=== PATIENT | male | born 2000 | race African-American/Black ===

== ENCOUNTER 2019-01-30 17:06 | Emergency (ER) | payer OTHER ==
[~2019-01-30] VITALS: Ht 177.8 cm; Wt 69.3 kg
[2019-01-30] MEDS ORDERED: LORazepam 2 MG/ML VIAL (J2060) IV STA (17:27)
[2019-01-30] MEDS ORDERED: MORPHINE 4 MG/ML 1ML VIAL/SYRINGE (J2270) IV ONE (17:30)
[2019-01-30] MEDS ORDERED: ONDANSETRON 4MG/2ML VIAL (J2405) IV ONE (17:30)
--- NOTE | 2019-01-30 18:52 | REP ---
Right shoulder two views: There is anterior inferior dislocation of the humeral head. Electronically Signed by Javier Suárez MD 01/30/2019 06:44 P
[2019-01-30 19:00] VITALS: BP 161/79
--- NOTE | 2019-01-30 19:20 | REP ---
Portable right shoulder, single AP view, post reduction: The study is correlated with the right shoulder study earlier this same evening. The humeral head is normally aligned with the glenoid. The dislocation has been satisfactorily reduced. No fracture is identified. Electronically Signed by Javier Suárez MD 01/30/2019 07:12 P
[2019-01-30] MEDS ORDERED: PERCOCET 5MG/325MG TAB PO ONE (19:30)
[2019-01-30] MEDS ORDERED: PERC5TAB12 PO (19:35)
== END 2019-01-30 20:04 | disposition home or self-care (01) ==
LOC: M ED 17:06
DX: S43.004A Unspecified dislocation of right shoulder joint, initial encounter (principal); X58.XXXA Exposure to other specified factors, initial encounter; Y92.89 Other specified places as the place of occurrence of the external cause
CPT/HCPCS: 23650; 73020; 73030; 94760; 96374; 96375; 99284; J2060; J2270; J2405